=== PATIENT | female | born 1995 | race American Indian/Alaskan Native ===

== ENCOUNTER 2021-02-06 20:53 | Inpatient (IN) | payer MEDICAID ==
[2021-02-06] MEDS ORDERED: PROMETHAZINE 25 MG TAB PO ONE (22:00)
[2021-02-06] MEDS ORDERED: MORPHINE 4 MG/1 ML INJ IV ONE (22:00)
[2021-02-06] MEDS ORDERED: LACTATED RINGERS 1,000 ML IV ONE (22:00)
[2021-02-06] MEDS ORDERED: ACETAMINOPHEN 325 MG TAB PO ONE (23:02)
[2021-02-06] MEDS ORDERED: OXYTOCIN DRIP 30 UNITS/500 ML BAG IV SCH ×2 (23:45)
[2021-02-06] MEDS ORDERED: ONDANSETRON 4 MG/2 ML INJ IV PRN (23:55)
[2021-02-06] MEDS ORDERED: LOPERAMIDE 2 MG CAP PO PRN (23:55)
[2021-02-06] MEDS ORDERED: CARBOPROST TROMETHAMINE 250 MCG/1 ML INJ IM PRN (23:55)
[2021-02-06] MEDS ORDERED: TERBUTALINE 1 MG/1 ML INJ SUB-Q PRN (23:55)
[2021-02-06] MEDS ORDERED: METHYLERGONOVINE MALEATE 0.2 MG/ML VIAL IM PRN (23:55)
[2021-02-06] MEDS ORDERED: OXYTOCIN 10 UNIT/1 ML INJ IM PRN (23:55)
[2021-02-06] MEDS ORDERED: miSOPROStol 200 MCG TAB PR PRN (23:55)
[2021-02-06] MEDS ORDERED: MINERAL OIL 30 ML ORAL LIQD PO PRN (23:55)
[2021-02-06] MEDS ORDERED: LIDOCAINE (2%) 20 MG/1 ML VIAL 20 ML MDV INFILTRATI ONE (23:55)
[2021-02-06] MEDS ORDERED: ePHEDrine SULFATE 50 MG/1 ML INJ IV PRN (23:55)
[2021-02-07] MEDS: BUTORPHANOL 2 MG/1 ML INJ IV PRN ×2 (00:14→03:14)
[2021-02-07] MEDS: LACTATED RINGERS 1,000 ML IV SCH ×2 (00:15→11:02)
[2021-02-07 00:47] LABS: Hematocrit 34.6 % (30.3-42.9); Hemoglobin 11.9 gm/dl (10.1-14.3); Mean Corpuscular HGB Conc 35 % (30-34); Mean Corpuscular Volume 95 fl (79-97); Platelet Count 216 K/mm3 (140-440); Red Blood Count 3.64 M/mm3 (3.65-5.03); Red Cell Distribution Width 13.4 % (13.2-15.2)
[2021-02-07] MEDS ORDERED: AMPICILLIN/NS 2 GM/100 ML 2 GM/100 ML BAG IV ONE (05:48)
[2021-02-07] MEDS ORDERED: NALOXONE 2 MG/2 ML INJ IV PRN (06:14)
[2021-02-07] MEDS ORDERED: ePHEDrine SULFATE 50 MG/1 ML INJ IV PRN ×2 (06:14→16:52)
[2021-02-07] MEDS ORDERED: BUPIVACAINE/PF (0.25%) 2.5 MG/ML 10 ML VIAL INFILTRATI ONE (07:18)
[2021-02-07] MEDS: fentaNYL-BUPIV 2 MCG/ML-0.125% 200 MCG/100 ML BAG EPIDURAL SCH ×2 (07:55→15:03)
[2021-02-07] MEDS ORDERED: AMPICILLIN/NS 1 GM/50 ML 1 GM/50 ML BAG IV SCH (10:00)
--- NOTE | 2021-02-07 16:42 | History and Physical Report ---
History of Present Illness Date of examination: 02/07/21 Date of admission: 02/07/21 00:22 Chief complaint: I am having contractions History of present illness: Patient is 25-year-old moves 1 para 0 who presents with regular contractions at 37-2/7-week with EDC 02/25/2021. She is an uncomplicated course. She is GBS negative. All labs have been negative Past History Past Medical History: no pertinent history Past Surgical History: no surgical history Family/Genetic History: none Social history: single - Obstetrical History Expected Date of Delivery: 02/25/21 Actual Gestation: 37 Week(s) 3 Day(s) : 1 Number of Living Children: 0 Medications and Allergies Allergies Allergy/AdvReac Type Severity Reaction Status Date / Time No Known Allergies Allergy Unverified 02/06/21 11:27 Home Medications Medication Instructions Recorded Confirmed Last Taken Type No Known Home Medications [No 02/06/21 02/06/21 Unknown History Reported Home Medications] Active Meds: Active Medications Butorphanol Tartrate (Butorphanol 2 Mg/1 Ml Inj) 2 mg IV Q2H PRN PRN Reason: Pain , Severe (7-10) Last Admin: 02/07/21 03:14 Dose: 2 mg Documented by: Carboprost Tromethamine (Carboprost Tromethamine 250 Mcg/1 Ml Inj) 250 mcg IM ONCE PRN PRN Reason: Uterine Bleeding Ephedrine Sulfate (Ephedrine Sulfate 50 Mg/1 Ml Inj) 10 mg IV Q2M PRN PRN Reason: Hypotension Oxytocin/Sodium Chloride (Pitocin/Ns 30 Unit/500ml) 30 units in 500 mls @ 2 mls/hr IV TITR DWIGHT; Protocol Last Admin: 02/07/21 08:42 Dose: 2 mls/hr, 2 mls/hr Documented by: Lactated Ringer's (Lactated Ringers) 1,000 mls @ 125 mls/hr IV DIRECT DWIGHT Last Admin: 02/07/21 11:02 Dose: 125 mls/hr Documented by: Oxytocin/Sodium Chloride (Pitocin/Ns 30 Unit/500ml) 30 units in 500 mls @ 40 mls/hr IV TITR DWIGHT; Protocol Fentanyl/Bupivacaine/Sodium Chlor (Fentanyl-Bupiv 2 Mcg/Ml-0.125%) 200 mcg in 100 mls @ 12 mls/hr EPIDURAL TITR DWIGHT; Protocol Last Admin: 02/07/21 15:03 Dose: 12 mls/hr Documented by: Loperamide HCl (Loperamide 2 Mg Cap) 2 mg PO ONCE PRN PRN Reason: give with Hemabate Methylergonovine Maleate (Methylergonovine Maleate 0.2 Mg/Ml Vial) 0.2 mg IM ONCE PRN PRN Reason: Uterine Bleeding Mineral Oil (Mineral Oil 30 Ml Oral Liqd) 30 ml PO QHS PRN PRN Reason: Constipation Misoprostol (Misoprostol 200 Mcg Tab) 800 mcg IN ONCE PRN PRN Reason: Uterine Bleeding Naloxone HCl (Naloxone 2 Mg/2 Ml Inj) 0.2 mg IV Q5M PRN PRN Reason: Respiratory sedation Ondansetron HCl (Ondansetron 4 Mg/2 Ml Inj) 4 mg IV Q8H PRN PRN Reason: Nausea And Vomiting Last Admin: 02/07/21 00:14 Dose: 4 mg Documented by: Oxytocin (Oxytocin 10 Unit/1 Ml Inj) 10 unit IM ONCE PRN PRN Reason: Uterine Bleeding Terbutaline Sulfate (Terbutaline 1 Mg/1 Ml Inj) 0.25 mg SUB-Q ONCE PRN PRN Reason: Hyperstimulation/Hypertonicity Review of Systems All systems: negative Genitourinary: leakage of fluid, contractions - Vital Signs Vital signs: Vital Signs Pulse BP 71 128/73 02/06/21 20:59 02/06/21 20:59 Temp Pulse Resp BP Pulse Ox 97.9 F 88 16 118/68 95 02/07/21 15:51 02/07/21 16:34 02/07/21 15:51 02/07/21 16:17 02/07/21 16:34 - Physical Exam Breasts: Cardiovascular: Regular rate, Normal S1, Normal S2 Lungs: Positive: Clear to auscultation, Normal air movement Abdomen: Positive: normal appearance, soft, normal bowel sounds. Negative: distention, tenderness Genitourinary (Female): Positive: normal external genitalia, normal perenium Vulva: both: normal Vagina: Positive: normal moisture. Negative: discharge Cervix: Negative: lesion, discharge Uterus: Positive: normal size, normal contour Adnexa: both: normal Anus/Rectum: Positive: normal perianal skin, heme negative. Negative: rectal mass, hemorrhoids Extremities: Positive: normal Deep Tendon Reflex Grade: Normal +2 - Obstetrical FHR: auscultation normal Cervical Dilatation: 3 Cervical Effacement Percentage: 70 station: 1 Uterine Contraction Frequency (min): 6 Uterine Contraction Pattern: Regular Uterine Tone Measurement Phase: Contraction Uterine Contraction Intensity: Moderate Results Result Diagrams: 02/06/21 22:30 Abnormal lab results 02/06/21 Range/Units 22:30 RBC 3.64 L (3.65-5.03) M/mm3 MCH 33 H (28-32) pg MCHC 35 H (30-34) % All other labs normal. Assessment and Plan IUP at 37-2/7 weeks here in active labor. will admit for management of labor. Patient may have epidural. AROM when able. Anticipate .
--- NOTE | 2021-02-07 16:51 | Procedure Note ---
OB Delivery Note - Delivery Date of Delivery: 02/07/21 Surgeon: SUMMER SOLER Estimated blood loss: other (400cc) - Vaginal Delivery presentation: vertex Delivery position: OA Intrapartum events: meconium Delivery induction: none Delivery augmentation: rupture of membranes, pitocin Delivery monitor: external FHT, external uterine Route of delivery: Delivery placenta: spontaneous Delivery cord: 3 umbilical vessels Episiotomy: none Delivery laceration: 2nd degree Delivery repair: vicryl Anesthesia: epidural Delivery comments: Viable male delivered over intact perineum at 4:13 p.m. No nuchal cord was noted. Infant had spontaneous cry and was placed on maternal abdomen. Cord was clamped and cut when finished pulsating. Weight 5 pounds 15 ounces. Apgars 8/9. Placenta was delivered spontaneously and intact with three-vessel cord. Patient had a second degree laceration that was repaired with 2-0 Vicryl. Excellent hemostasis. Patient tolerated procedure well. - A at 1 minute: 8 at 5 minutes: 9 Infant Gender: Male (5 pounds 15 ounces)
[2021-02-07] MEDS ORDERED: OXYTOCIN 10 UNIT/1 ML INJ IM PRN (16:59)
[2021-02-07] MEDS ORDERED: ACETAMINOPHEN 325 MG TAB PO PRN (18:00)
[2021-02-07] MEDS ORDERED: HYDROcodone/ACETAMINOPHEN 5-325 MG TAB PO PRN (19:04)
[2021-02-07] MEDS ORDERED: PROMETHAZINE 25 MG TAB PO PRN (19:04)
[2021-02-07] MEDS ORDERED: PROMETHAZINE 25 MG RECT SUPP PR PRN (19:04)
[2021-02-07] MEDS ORDERED: WITCH HAZEL/ GLYCERIN PAD TP PRN (19:04)
[2021-02-07] MEDS ORDERED: MAGNESIUM HYDROXIDE (MOM) ORAL LIQD UDC PO PRN (19:04)
[2021-02-07] MEDS ORDERED: LANOLIN/ZINC/DIMETHICONE (LANSINOH) 7 GM TP PRN (19:04)
[2021-02-07] MEDS ORDERED: ONDANSETRON 4 MG/2 ML INJ IV PRN (19:04)
[2021-02-07] MEDS ORDERED: KETOROLAC 30 MG/1 ML INJ IV PRN (19:04)
[2021-02-07] MEDS ORDERED: diphenhydrAMINE 25 MG CAP PO PRN (19:04)
[2021-02-07] MEDS: DOCUSATE SODIUM 100 MG CAP PO SCH (22:06)
[2021-02-07] MEDS: IBUPROFEN 600 MG TAB PO SCH (23:06)
[2021-02-08] MEDS: IBUPROFEN 600 MG TAB PO SCH ×2 (05:57→15:39)
[2021-02-08 06:06] LABS: Hematocrit 24.8 % (30.3-42.9); Hemoglobin 8.5 gm/dl (10.1-14.3)
--- NOTE | 2021-02-08 08:32 | Progress Note ---
Assessment and Plan PPD 1 s/p . Doing well. Will consider discharge this evening if baby able to go Subjective - Subjective Date of service: 02/08/21 Interval history: Patient is 25-year-old moves 1 para 0 who presents with regular contractions at 37-2/7-week with EDC 02/25/2021. She is an uncomplicated course. She is GBS negative. All labs have been negative Patient reports: appetite normal, voiding normally, pain well controlled, ambulating normally [place]: doing well Objective - Vital Signs Latest vital signs: Vital Signs Temp Pulse Resp BP BP Pulse Ox Pulse Ox 02/08/21 05:56 98 02/08/21 03:20 99 02/08/21 01:35 99 02/08/21 01:06 99.5 F 107 H 20 109/58 100 02/07/21 23:05 98 02/07/21 22:05 98 02/07/21 20:02 98.2 F 87 20 100/55 100 02/07/21 19:45 98 02/07/21 18:43 98.7 F 88 20 115/55 02/07/21 18:10 78 110/63 02/07/21 17:55 81 117/62 02/07/21 17:40 94 H 125/56 02/07/21 17:25 86 125/60 02/07/21 17:14 89 100 02/07/21 17:10 88 112/71 02/07/21 17:09 92 H 100 02/07/21 17:04 83 100 02/07/21 16:59 86 100 02/07/21 16:54 85 116/69 100 02/07/21 16:50 73 116/64 02/07/21 16:48 82 100 02/07/21 16:44 96 H 100 02/07/21 16:39 86 110/58 100 02/07/21 16:34 88 95 02/07/21 16:29 78 100 02/07/21 16:23 72 100 02/07/21 16:18 84 100 02/07/21 16:17 80 118/68 02/07/21 16:13 93 H 100 02/07/21 16:09 93 H 100 02/07/21 16:04 91 H 98 02/07/21 15:59 68 100 02/07/21 15:56 79 91 02/07/21 15:54 74 97 02/07/21 15:51 97.9 F 16 99 02/07/21 15:49 63 100 02/07/21 15:47 70 113/74 02/07/21 15:44 65 100 02/07/21 15:39 83 99 02/07/21 15:36 97 H 87 02/07/21 15:34 85 100 02/07/21 15:29 87 98 02/07/21 15:23 70 100 02/07/21 15:19 69 100 02/07/21 15:18 78 109/68 02/07/21 15:14 60 100 02/07/21 15:08 57 L 100 02/07/21 15:06 60 93 02/07/21 15:03 67 100 02/07/21 14:58 60 100 02/07/21 14:54 62 100 02/07/21 14:49 57 L 113/66 100 02/07/21 14:44 57 L 100 02/07/21 14:39 72 100 02/07/21 14:33 59 L 100 02/07/21 14:29 61 100 02/07/21 14:24 68 100 02/07/21 14:18 63 99 02/07/21 14:17 58 L 105/61 02/07/21 14:14 63 99 02/07/21 14:08 64 99 02/07/21 14:04 59 L 100 02/07/21 13:59 62 99 02/07/21 13:53 64 99 02/07/21 13:48 62 113/68 100 02/07/21 13:43 72 99 02/07/21 13:38 68 99 02/07/21 13:33 70 94 02/07/21 13:32 71 93 02/07/21 13:28 25 L 99 02/07/21 13:26 68 91 02/07/21 13:23 86 100 02/07/21 13:18 67 100 02/07/21 13:17 66 135/87 02/07/21 13:13 96 H 100 02/07/21 13:09 69 94 02/07/21 13:08 64 100 02/07/21 13:03 76 100 02/07/21 12:58 65 99 02/07/21 12:53 67 97 02/07/21 12:48 67 151/85 100 02/07/21 12:43 61 100 02/07/21 12:38 65 99 02/07/21 12:33 95 H 100 02/07/21 12:28 68 100 02/07/21 12:23 66 100 02/07/21 12:18 73 100 02/07/21 12:17 72 115/66 02/07/21 12:13 65 100 02/07/21 12:08 86 100 02/07/21 12:03 69 100 02/07/21 11:58 71 100 02/07/21 11:53 77 100 02/07/21 11:48 65 100 02/07/21 11:46 98.1 F 02/07/21 11:43 73 100 02/07/21 11:41 68 108/58 02/07/21 11:38 76 100 02/07/21 11:33 70 100 02/07/21 11:28 73 100 02/07/21 11:26 70 115/56 02/07/21 11:23 70 100 02/07/21 11:18 64 100 02/07/21 11:13 69 100 02/07/21 11:11 73 113/59 02/07/21 11:08 76 100 02/07/21 11:03 71 99 02/07/21 10:58 62 100 02/07/21 10:55 75 109/55 02/07/21 10:53 65 100 02/07/21 10:48 61 100 02/07/21 10:43 74 100 02/07/21 10:41 68 187/76 94 02/07/21 10:38 65 98 02/07/21 10:33 61 100 02/07/21 10:28 83 99 02/07/21 10:23 65 100 02/07/21 10:18 61 100 02/07/21 10:13 62 100 02/07/21 10:11 57 L 138/78 02/07/21 10:08 63 99 02/07/21 10:03 70 100 02/07/21 09:58 75 99 02/07/21 09:55 57 L 106/51 02/07/21 09:53 57 L 100 02/07/21 09:48 70 100 02/07/21 09:43 84 99 02/07/21 09:42 75 140/65 02/07/21 09:38 65 99 02/07/21 09:33 71 100 02/07/21 09:28 72 99 02/07/21 09:23 69 99 02/07/21 09:18 80 99 02/07/21 09:13 64 99 02/07/21 09:11 66 104/55 02/07/21 09:08 64 100 02/07/21 09:05 64 130/62 02/07/21 09:03 80 100 02/07/21 08:58 66 100 02/07/21 08:53 59 L 100 02/07/21 08:48 73 100 02/07/21 08:43 68 99 02/07/21 08:42 65 129/75 02/07/21 08:38 81 99 02/07/21 08:33 55 L 100 Intake and Output 02/07/21 02/08/21 02/08/21 22:59 06:59 14:59 Intake Total 660 120 Output Total 1700 500 Balance -1040 -380 Intake: Oral 660 120 Output: Urine 1700 500 Void 1700 500 Other: Total, Intake Amount 120 120 Total, Output Amount 900 500 # Voids Void 1 1 Estimated Blood Loss 400 - Exam Breasts: Present: deferred Cardiovascular: Present: Regular rate, Normal S1, Normal S2 Lungs: Present: Clear to auscultation, Normal air movement Abdomen: Present: normal appearance, soft, normal bowel sounds Uterus: Present: normal, firm Extremities: Present: normal Deep Tendon Reflex Grade: Normal +2 - Labs Labs: Abnormal lab results 02/08/21 Range/Units 04:22 Hgb 8.5 L D (10.1-14.3) gm/dl Hct 24.8 L D (30.3-42.9) %
[2021-02-08] MEDS: DOCUSATE SODIUM 100 MG CAP PO SCH ×2 (10:07→21:50)
[2021-02-08] MEDS: PRENATAL VIT27-FE FUMARATE-FOLIC ACID VIT TAB PO SCH (10:07)
--- NOTE | 2021-02-08 13:32 | Post Anesthesia Evaluation ---
- Post Anesthesia Evaluation Patient Participated: Yes Airway Patent: Yes Stable Respiratory Function: Yes Nausea/Vomiting: No Temp > 96.8F: Yes Pain Manageable: Yes Adequeate Hydration: Yes Anesthesia Complications: No Block Receding Appropriately: Yes Patient on Ventilator: No
[2021-02-09] MEDS: IBUPROFEN 600 MG TAB PO SCH (05:34)
[2021-02-09] MEDS ORDERED: TETANUS,DIPH,PERTUSS(ACELL) VACCINE 0.5 ML SYRINGE IM ONE (06:00)
[2021-02-09] MEDS: DOCUSATE SODIUM 100 MG CAP PO SCH (11:47)
[2021-02-09] MEDS: PRENATAL VIT27-FE FUMARATE-FOLIC ACID VIT TAB PO SCH (11:47)
--- NOTE | 2021-02-09 11:52 | Progress Note ---
Assessment and Plan PPD 2 s/p . Doing well. Plan for discharge on today. Subjective - Subjective Date of service: 02/09/21 Interval history: Patient is 25-year-old moves 1 para 0 who presents with regular contractions at 37-2/7-week with EDC 02/25/2021. She is an uncomplicated course. She is GBS negative. All labs have been negative Patient reports: appetite normal, voiding normally, pain well controlled, ambulating normally [place]: doing well Objective - Vital Signs Latest vital signs: Vital Signs Temp Pulse Resp BP BP Pulse Ox Pulse Ox 02/09/21 08:00 0 L 02/09/21 07:57 98.2 F 76 18 122/70 99 02/09/21 06:34 18 02/09/21 05:34 18 02/09/21 00:00 98.6 F 74 18 112/78 02/08/21 20:00 100 02/08/21 16:17 98.1 F 83 16 107/48 100 02/08/21 15:39 20 02/08/21 12:46 98.3 F 72 16 99/47 99 Intake and Output 02/08/21 02/09/21 02/09/21 22:59 06:59 14:59 Intake Total 360 500 240 Balance 360 500 240 Intake: Oral 360 200 240 Intake, Free Water 300 Other: Total, Intake Amount 360 200 240 # Voids Void 1 1 1 - Exam Breasts: Present: deferred Cardiovascular: Present: Regular rate, Normal S1, Normal S2 Lungs: Present: Clear to auscultation, Normal air movement Abdomen: Present: normal appearance, soft Uterus: Present: normal, firm Extremities: Present: normal
--- NOTE | 2021-02-09 11:54 | Discharge Summary ---
Providers - Providers Date of Admission: 02/07/21 00:22 Date of discharge: 02/09/21 Attending physician: SUMMER SOLER Primary care physician: SUMMER SOLER Hospitalization Reason for admission: active labor Delivery: Episiotomy: none Laceration: 2nd degree Discharge diagnosis: IUP at term delivered baby: male Hospital course: unremarkable Condition at discharge: Good Disposition: DC-01 TO HOME OR SELFCARE Plan - Discharge Medications Prescriptions: Ferrous Sulfate [Iron 325 MG] 325 mg PO BID #60 tablet Ibuprofen [Motrin] 800 mg PO Q8HR PRN #40 tablet PRN Reason: Pain, Mild (1-3) - Provider Discharge Summary Activity: routine, no sex for 6 weeks, no heavy lifting 4 weeks, no strenuous exercise Diet: routine Instructions: routine Additional instructions: [] Smoking cessation referral if applicable(refer to patient education folder for contact #) [] Refer to [facility]'s [facility] Booklet Call your doctor immediately for: * Fever > 100.5 * Heavy vaginal bleeding ( >1 pad per hour) * Severe persistent headache * Shortness of breath * Reddened, hot, painful area to leg or breast * Drainage or odor from incision. * Keep incision clean and dry at all times and follow doctor's instructions regarding bathing/showering - Follow up plan Follow up: SUMMER SOLER MD [Primary Care Provider] - 14 Days
[2021-02-09 12:02] VITALS: BP 135/81
== END 2021-02-09 14:30 | disposition home or self-care (01) | DRG 775 ==
LOC: TRG 20:53 → APU 20:55 → TRG 02-07 00:21 → OBSVTOIN 02-07 00:22 → LD 02-07 00:22 → OB 02-07 19:02
PROVIDERS: ADMIT Obstetrics & Gynecology; ATTEND Obstetrics & Gynecology
PROC: 10E0XZZ Delivery of Products of Conception, External Approach (ICD-10-PCS; principal; 2021-02-07)
PROC: 0KQM0ZZ Repair Perineum Muscle, Open Approach (ICD-10-PCS; 2021-02-07)
PROC: 3E0R3BZ Introduction of Anesthetic Agent into Spinal Canal, Percutaneous Approach (ICD-10-PCS; 2021-02-07)
PROC: 00HU33Z Insertion of Infusion Device into Spinal Canal, Percutaneous Approach (ICD-10-PCS; 2021-02-07)
PROC: 3E0234Z Introduction of Serum, Toxoid and Vaccine into Muscle, Percutaneous Approach (ICD-10-PCS; 2021-02-09)
DX: O77.0 Labor and delivery complicated by meconium in amniotic fluid (principal); O70.1 Second degree perineal laceration during delivery; Z20.822 Contact with and (suspected) exposure to COVID-19; Z37.0 Single live birth; Z3A.37 37 weeks gestation of pregnancy
CPT/HCPCS: 36415; 59025; 85014; 85018; 85027; 86592; 86850; 86900; 86901; 96360; 96361; 96365; 96366; 96374; 96375; 99211; G0378; G0463; J0290; J0595; J2270; J2405; J2590; J7120; Q0169; U0003